=== PATIENT | male | born 1995 | race Two or more races ===

== ENCOUNTER 2018-05-25 11:46 | Inpatient (IN) | payer MEDICAID ==
[~2018-05-25] VITALS: Ht 165.1 cm; Wt 53.3 kg
[~2018-05-25 11:46] MED LIST: DIVA250T45 PO; OLAN10TA3 PO
[2018-05-25 14:04] VITALS: BP 115/65
[2018-05-25] MEDS ORDERED: HALOPERIDOL 5 MG TABLET PO PRN (14:15)
[2018-05-25 15:55] VITALS: BP 106/78
[2018-05-25] MEDS ORDERED: ACETAMINOPHEN 325 MG TABLET PO PRN (16:00)
[2018-05-25] MEDS ORDERED: PETROLATUM,WHITE 28 GM JELLY TP PRN (16:00)
[2018-05-25] MEDS ORDERED: LOPERAMIDE HCL 2 MG CAPSULE PO PRN (16:00)
[2018-05-25] MEDS ORDERED: ONDANSETRON HCL 4 MG TABLET PO PRN (16:00)
[2018-05-25] MEDS ORDERED: GuaiFENesin/D-METHORPHAN [SUGAR-FREE] 200-20MG/10 ML SYRUP UDCUP PO PRN (16:00)
[2018-05-25] MEDS ORDERED: IBUPROFEN 400 MG TABLET PO PRN (16:00)
[2018-05-25] MEDS ORDERED: DOCUSATE SODIUM 100 MG CAPSULE PO PRN (16:00)
[2018-05-25] MEDS ORDERED: MAGNESIUM HYDROXIDE SUSPENSION 30 ML UDCUP PO PRN (16:00)
[2018-05-25] MEDS ORDERED: MAG HYDROX/AL HYDROX/SIMETH ES 30 ML SUSPENSION UDCUP PO PRN (16:00)
[2018-05-25] MEDS ORDERED: CloNIDine HCL 0.1 MG TABLET PO PRN (16:00)
[2018-05-25] MEDS ORDERED: ALBUTEROL SULFATE HFA 90 MCG/PUFF 8 GM INHALER IH PRN (16:00)
[2018-05-25] MEDS ORDERED: NICOTINE 14 MG/24 HOUR PATCH TD PRN (16:00)
[2018-05-26 06:06] VITALS: BP 112/68
[2018-05-26 08:10] VITALS: BP 104/68
[2018-05-26 10:02] LABS: BASOPHILS % (AUTO) 0.6 % (0.0-2.0); EOSINOPHILS % (AUTO) 1.2 % (1.0-6.0); HEMOGLOBIN 14.4 g/dL (13.5-17.5); LYMPHOCYTES # (AUTO) 1.9 K/uL (1.0-4.8); LYMPHOCYTES % (AUTO) 32.1 % (22.0-44.0); MEAN CORPUSCULAR HEMOGLOBIN 31.3 pg (26.0-34.0); MEAN CORPUSCULAR HGB CONC 34.2 G/dL (31.0-37.0); MEAN CORPUSCULAR VOLUME 92 fL (80-100); MONOCYTES # (AUTO) 0.5 K/uL (0.1-1.0); MONOCYTES % (AUTO) 8.8 % (2.0-9.0); NEUTROPHILS # (AUTO) 3.5 K/uL (1.8-7.7); NEUTROPHILS % (AUTO) 57.3 % (40.0-70.0); PLATELET COUNT (AUTO) 189 K/uL (150-450); RED BLOOD CELL COUNT(AUTO) 4.59 MIL/uL (4.50-5.90); RED CELL DISTRIBUTION WIDTH 13.3 % (11.5-14.5)
[2018-05-26 10:46] LABS: HEMOGLOBIN A1C 5.7 % (4.5-6.2)
[2018-05-26 11:17] LABS: ALANINE AMINOTRANSFERASE 14 U/L (12-78); ALBUMIN 4.2 g/dL (3.4-5.0); ANION GAP 11 mmol/L (8-16); ASPARTATE AMINOTRANSFERASE 11 U/L (15-37); BILIRUBIN,TOTAL 0.8 mg/dL (0.1-1.0); CALCIUM, TOTAL 9.2 mg/dL (8.8-10.5); CARBON DIOXIDE 26 mmol/L (22-29); CHLORIDE 103 mmol/L (98-107); CHOL/HDL RATIO 3.7 (4.2-7.3); CHOLESTEROL 134 mg/dL (131-200); CREATININE 0.94 mg/dL (0.60-1.30); FREE T4 (FREE THYROXINE) 1.13 ng/dL (0.76-1.46); GLOMERULAR FILTR. RATE CALC > 60 mL/min (>60); GLUCOSE,RANDOM 108 mg/dL (70-110); HDL CHOLESTEROL 36 mg/dL (40-60); LDL CHOL (CALC.) 85 mg/dL (0-130); POTASSIUM 3.4 mmol/L (3.5-5.1); SODIUM SERUM 140 mmol/L (136-145); THYROID STIMULATING HORMONE 0.71 uIU/mL (0.36-3.74); TRIGLYCERIDES 63 mg/dL (15-150); UREA NITROGEN, BLOOD 14 mg/dL (7-18)
[2018-05-26 11:29] LABS: ALKALINE PHOSPHATASE 68 U/L (46-116)
[2018-05-26] MEDS: DIVALPROEX SODIUM 250 MG ER TABLET PO SCH ×2 (12:15→20:23)
[2018-05-26] MEDS ORDERED: POTASSIUM CHLORIDE 20 MEQ ER TABLET PO ONE (12:45)
[2018-05-26 16:11] VITALS: BP 124/85
[2018-05-26] MEDS: OLANZapine 10 MG TABLET PO SCH (16:13)
[2018-05-27 05:57] VITALS: BP 126/79
[2018-05-27] MEDS: OLANZapine 10 MG TABLET PO SCH ×2 (08:16→16:15)
[2018-05-27] MEDS: DIVALPROEX SODIUM 250 MG ER TABLET PO SCH ×2 (08:16→20:55)
[2018-05-27 08:55] VITALS: BP 131/80
[2018-05-27] MEDS: LORazepam 2 MG TABLET PO PRN (16:15)
[2018-05-27 16:19] VITALS: BP 118/76
[2018-05-27] MEDS: ZOLPIDEM TARTRATE 10 MG TABLET PO PRN (20:55)
[2018-05-28 06:37] VITALS: BP 118/64
[2018-05-28] MEDS: OLANZapine 10 MG TABLET PO SCH ×2 (08:05→16:54)
[2018-05-28] MEDS: DIVALPROEX SODIUM 250 MG ER TABLET PO SCH ×2 (08:05→20:41)
[2018-05-28 08:12] VITALS: BP 111/70
[2018-05-28] MEDS: LORazepam 2 MG TABLET PO PRN (16:54)
[2018-05-28 18:33] VITALS: BP 117/75
[2018-05-29 01:55] VITALS: BP 114/73
[2018-05-29 08:04] VITALS: BP 106/66
[2018-05-29] MEDS: DIVALPROEX SODIUM 250 MG ER TABLET PO SCH ×2 (08:35→20:18)
[2018-05-29] MEDS: OLANZapine 10 MG TABLET PO SCH ×2 (08:35→17:09)
[2018-05-29 16:00] VITALS: BP 130/67
[2018-05-29] MEDS: LORazepam 2 MG TABLET PO PRN (17:09)
[2018-05-29] MEDS: ZOLPIDEM TARTRATE 10 MG TABLET PO PRN (20:18)
[2018-05-30 01:48] VITALS: BP 122/68
[2018-05-30] MEDS: OLANZapine 10 MG TABLET PO SCH ×2 (08:27→16:41)
[2018-05-30] MEDS: DIVALPROEX SODIUM 250 MG ER TABLET PO SCH ×2 (08:27→20:23)
[2018-05-30 08:45] VITALS: BP 98/56
[2018-05-30 16:02] VITALS: BP 127/71
[2018-05-30] MEDS: LORazepam 2 MG TABLET PO PRN (16:42)
[2018-05-30] MEDS: ZOLPIDEM TARTRATE 10 MG TABLET PO PRN (20:23)
[2018-05-31 06:40] VITALS: BP 118/82
[2018-05-31] MEDS: LORazepam 2 MG TABLET PO PRN (08:08)
[2018-05-31] MEDS: DIVALPROEX SODIUM 250 MG ER TABLET PO SCH (08:08)
[2018-05-31] MEDS: OLANZapine 10 MG TABLET PO SCH (08:08)
[2018-05-31 08:11] VITALS: BP 102/53
[2018-05-31] MEDS ORDERED: OLAN10TA3 PO (15:44)
[2018-05-31] MEDS ORDERED: DIVA500T52 PO (15:45)
== END 2018-05-31 16:32 | disposition left against medical advice (07) | DRG 750 ==
LOC: B3A 14:21
PROVIDERS: ADMIT Psychiatry & Neurology Child & Adolescent Psychiatry; ATTEND Psychiatry & Neurology Child & Adolescent Psychiatry
DX: F20.0 Paranoid schizophrenia (principal); E87.6 Hypokalemia; F94.0 Selective mutism; J45.909 Unspecified asthma, uncomplicated; F99 Mental disorder, not otherwise specified; F19.10 Other psychoactive substance abuse, uncomplicated; F41.9 Anxiety disorder, unspecified
CPT/HCPCS: 83036; 84132; 84439; 84443

== ENCOUNTER 2018-06-06 16:21 | Inpatient (IN) | payer MEDICAID, OTHER ==
[~2018-06-06] VITALS: Ht 162.6 cm; Wt 54.4 kg
[~2018-06-06 16:21] MED LIST changes: -DIVA250T45 PO; +DIVA500T52 PO
[2018-06-06 19:42] LABS: BASOPHILS % (AUTO) 0.3 % (0.0-2.0); EOSINOPHILS % (AUTO) 0.4 % (1.0-6.0); HEMATOCRIT 41.6 % (41-53); HEMOGLOBIN 14.6 g/dL (13.5-17.5); LYMPHOCYTES # (AUTO) 2.2 K/uL (1.0-4.8); LYMPHOCYTES % (AUTO) 23.4 % (22.0-44.0); MEAN CORPUSCULAR HEMOGLOBIN 31.2 pg (26.0-34.0); MEAN CORPUSCULAR HGB CONC 35.1 G/dL (31.0-37.0); MEAN CORPUSCULAR VOLUME 89 fL (80-100); MONOCYTES # (AUTO) 1.4 K/uL (0.1-1.0); MONOCYTES % (AUTO) 14.4 % (2.0-9.0); NEUTROPHILS # (AUTO) 5.8 K/uL (1.8-7.7); NEUTROPHILS % (AUTO) 61.5 % (40.0-70.0); PLATELET COUNT (AUTO) 201 K/uL (150-450); RED BLOOD CELL COUNT(AUTO) 4.67 MIL/uL (4.50-5.90)
[2018-06-06] MEDS ORDERED: PERTUSS(ACELL),DIPH,TET VAC/PF 0.5 ML VIAL IM ONE (19:45)
[2018-06-06 19:48] LABS: ANION GAP 14 mmol/L (8-16); CALCIUM, TOTAL 9.6 mg/dL (8.8-10.5); CARBON DIOXIDE 24 mmol/L (22-29); CHLORIDE 105 mmol/L (98-107); CREATININE 1.05 mg/dL (0.60-1.30); GLOMERULAR FILTR. RATE CALC > 60 mL/min (>60); GLUCOSE,RANDOM 98 mg/dL (70-110); POTASSIUM 3.2 mmol/L (3.5-5.1); SODIUM SERUM 143 mmol/L (136-145); UREA NITROGEN, BLOOD 15 mg/dL (7-18)
[2018-06-06 19:55] LABS: ALANINE AMINOTRANSFERASE 13 U/L (12-78); ALBUMIN 4.5 g/dL (3.4-5.0); ALKALINE PHOSPHATASE 72 U/L (46-116); ASPARTATE AMINOTRANSFERASE 15 U/L (15-37); BILIRUBIN,TOTAL 0.7 mg/dL (0.1-1.0); TOTAL PROTEIN, SERUM 7.5 g/dL (6.4-8.2)
[2018-06-06 19:55] LABS: AMPHET/METH SCREEN,URINE NEGATIVE (NEGATIVE); BARBITURATE SCREEN, URINE NEGATIVE (NEGATIVE); BENZODIAZEPINES SCREEN,URINE NEGATIVE (NEGATIVE); CANNABINOID SCREEN,URINE NEGATIVE (NEGATIVE); COCAINE SCREEN,URINE NEGATIVE (NEGATIVE); METHADONE SCREEN, URINE NEGATIVE (NEGATIVE); OPIATE SCREEN,URINE NEGATIVE (NEGATIVE)
[2018-06-06 19:56] LABS: PHENCYCLIDINE SCREEN,URINE NEGATIVE (NEGATIVE)
[2018-06-06 20:08] LABS: VALPROIC ACID < 3 mcg/mL (50-100)
[2018-06-06] MEDS ORDERED: POTASSIUM CHLORIDE 20 MEQ ER TABLET PO ONE (20:45)
[2018-06-06] MEDS ORDERED: OLANZapine 5 MG TABLET PO ONE (21:30)
[2018-06-06] MEDS ORDERED: HALOPERIDOL 5 MG TABLET PO PRN (22:15)
[2018-06-06] MEDS ORDERED: LORazepam 2 MG TABLET PO PRN (22:15)
[2018-06-06] MEDS ORDERED: ZOLPIDEM TARTRATE 10 MG TABLET PO PRN (22:15)
[2018-06-07 00:25] VITALS: BP 114/69
[2018-06-07] MEDS ORDERED: PETROLATUM,WHITE 28 GM JELLY TP PRN (06:45)
[2018-06-07] MEDS ORDERED: NICOTINE 14 MG/24 HOUR PATCH TD PRN (06:45)
[2018-06-07] MEDS ORDERED: IBUPROFEN 400 MG TABLET PO PRN (06:45)
[2018-06-07] MEDS ORDERED: ALBUTEROL SULFATE HFA 90 MCG/PUFF 8 GM INHALER IH PRN (06:45)
[2018-06-07] MEDS ORDERED: CloNIDine HCL 0.1 MG TABLET PO PRN (06:45)
[2018-06-07] MEDS ORDERED: DOCUSATE SODIUM 100 MG CAPSULE PO PRN (06:45)
[2018-06-07] MEDS ORDERED: ACETAMINOPHEN 325 MG TABLET PO PRN (06:45)
[2018-06-07] MEDS ORDERED: ONDANSETRON HCL 4 MG TABLET PO PRN (06:45)
[2018-06-07] MEDS ORDERED: LOPERAMIDE HCL 2 MG CAPSULE PO PRN (06:45)
[2018-06-07] MEDS ORDERED: MAG HYDROX/AL HYDROX/SIMETH ES 30 ML SUSPENSION UDCUP PO PRN (06:45)
[2018-06-07] MEDS ORDERED: GuaiFENesin/D-METHORPHAN [SUGAR-FREE] 200-20MG/10 ML SYRUP UDCUP PO PRN (06:45)
[2018-06-07] MEDS ORDERED: MAGNESIUM HYDROXIDE SUSPENSION 30 ML UDCUP PO PRN (06:45)
[2018-06-07 08:02] VITALS: BP 98/58
[2018-06-07] MEDS: DIVALPROEX SODIUM 500 MG ER TABLET PO SCH ×2 (13:25→20:46)
[2018-06-07] MEDS: OLANZapine 10 MG TABLET PO SCH (17:59)
[2018-06-08 07:12] LABS: ALANINE AMINOTRANSFERASE 12 U/L (12-78); ALBUMIN 3.9 g/dL (3.4-5.0); ALKALINE PHOSPHATASE 70 U/L (46-116); ANION GAP 12 mmol/L (8-16); ASPARTATE AMINOTRANSFERASE 15 U/L (15-37); BILIRUBIN,TOTAL 0.6 mg/dL (0.1-1.0); CALCIUM, TOTAL 9.1 mg/dL (8.8-10.5); CARBON DIOXIDE 26 mmol/L (22-29); CHLORIDE 107 mmol/L (98-107); CHOL/HDL RATIO 3.9 (4.2-7.3); CHOLESTEROL 150 mg/dL (131-200); CREATININE 0.82 mg/dL (0.60-1.30); GLOMERULAR FILTR. RATE CALC > 60 mL/min (>60); GLUCOSE,RANDOM 82 mg/dL (70-110); HDL CHOLESTEROL 38 mg/dL (40-60); LDL CHOL (CALC.) 101 mg/dL (0-130); POTASSIUM 3.8 mmol/L (3.5-5.1); SODIUM SERUM 145 mmol/L (136-145); THYROID STIMULATING HORMONE 0.61 uIU/mL (0.36-3.74); TOTAL PROTEIN, SERUM 6.6 g/dL (6.4-8.2); TRIGLYCERIDES 55 mg/dL (15-150); UREA NITROGEN, BLOOD 12 mg/dL (7-18)
[2018-06-08 07:30] LABS: HEMOGLOBIN A1C 5.7 % (4.5-6.2)
[2018-06-08 08:20] VITALS: BP 97/56
[2018-06-08] MEDS: DIVALPROEX SODIUM 500 MG ER TABLET PO SCH ×2 (08:35→21:18)
[2018-06-08] MEDS: OLANZapine 10 MG TABLET PO SCH ×2 (08:35→17:42)
[2018-06-08 16:08] VITALS: BP 115/66
[2018-06-08] MEDS: BACITRACIN 28.4 GM OINTMENT TP SCH (17:43)
[2018-06-09 08:12] VITALS: BP 116/71
[2018-06-09] MEDS: BACITRACIN 28.4 GM OINTMENT TP SCH ×2 (09:36→16:41)
[2018-06-09] MEDS: OLANZapine 10 MG TABLET PO SCH ×2 (09:36→16:41)
[2018-06-09] MEDS: DIVALPROEX SODIUM 500 MG ER TABLET PO SCH ×2 (09:36→20:18)
[2018-06-09 16:30] VITALS: BP 120/72
[2018-06-10 08:00] VITALS: BP 131/73
[2018-06-10] MEDS: BACITRACIN 28.4 GM OINTMENT TP SCH ×2 (08:46→17:24)
[2018-06-10] MEDS: OLANZapine 10 MG TABLET PO SCH ×2 (08:46→17:24)
[2018-06-10] MEDS: DIVALPROEX SODIUM 500 MG ER TABLET PO SCH ×2 (08:46→20:01)
[2018-06-10 18:49] VITALS: BP 119/63
[2018-06-11] MEDS: BACITRACIN 28.4 GM OINTMENT TP SCH ×2 (07:38→16:04)
[2018-06-11] MEDS: DIVALPROEX SODIUM 500 MG ER TABLET PO SCH ×2 (07:38→20:41)
[2018-06-11] MEDS: OLANZapine 10 MG TABLET PO SCH ×2 (07:38→16:04)
[2018-06-11 08:00] VITALS: BP 114/72
[2018-06-11 17:04] VITALS: BP 107/73
[2018-06-12 08:00] VITALS: BP 126/77
[2018-06-12] MEDS: OLANZapine 10 MG TABLET PO SCH (08:01)
[2018-06-12] MEDS: BACITRACIN 28.4 GM OINTMENT TP SCH (08:01)
[2018-06-12] MEDS: DIVALPROEX SODIUM 500 MG ER TABLET PO SCH (08:01)
[2018-06-12] MEDS ORDERED: BACI120O TP (12:47)
== END 2018-06-12 14:27 | disposition home or self-care (01) | DRG 750 ==
LOC: EMS 16:31 → 3EC 23:52
PROVIDERS: ATTEND Psychiatry & Neurology Child & Adolescent Psychiatry
DX: F20.9 Schizophrenia, unspecified (principal); Z59.0 Homelessness; E87.6 Hypokalemia; F17.200 Nicotine dependence, unspecified, uncomplicated; F32.9 Major depressive disorder, single episode, unspecified; F41.9 Anxiety disorder, unspecified; F12.90 Cannabis use, unspecified, uncomplicated; J45.909 Unspecified asthma, uncomplicated; Z71.6 Tobacco abuse counseling
CPT/HCPCS: 83036; 84443; 87081; 90471; 90715; G0480

== ENCOUNTER 2018-10-07 18:47 | Inpatient (IN) | payer MEDICAID, OTHER ==
[~2018-10-07] VITALS: Ht 162.6 cm; Wt 49.4 kg
[~2018-10-07 18:47] MED LIST changes: +BACI120O TP
[2018-10-07 20:57] LABS: BASOPHILS % (AUTO) 0.7 % (0.0-2.0); EOSINOPHILS % (AUTO) 2.1 % (1.0-6.0); HEMATOCRIT 41.9 % (41-53); LYMPHOCYTES # (AUTO) 2.3 K/uL (1.0-4.8); LYMPHOCYTES % (AUTO) 44.3 % (22.0-44.0); MEAN CORPUSCULAR HEMOGLOBIN 31.1 pg (26.0-34.0); MEAN CORPUSCULAR HGB CONC 33.5 G/dL (31.0-37.0); MEAN CORPUSCULAR VOLUME 93 fL (80-100); MONOCYTES # (AUTO) 0.5 K/uL (0.1-1.0); MONOCYTES % (AUTO) 9.7 % (2.0-9.0); NEUTROPHILS # (AUTO) 2.2 K/uL (1.8-7.7); NEUTROPHILS % (AUTO) 43.2 % (40.0-70.0); PLATELET COUNT (AUTO) 179 K/uL (150-450); RED BLOOD CELL COUNT(AUTO) 4.52 MIL/uL (4.50-5.90)
[2018-10-07 21:09] LABS: ANION GAP 6 mmol/L (8-16); CALCIUM, TOTAL 9.2 mg/dL (8.8-10.5); CARBON DIOXIDE 29 mmol/L (22-29); CHLORIDE 103 mmol/L (98-107); CREATININE 0.79 mg/dL (0.60-1.30); GLOMERULAR FILTR. RATE CALC > 60 mL/min (>60); GLUCOSE,RANDOM 88 mg/dL (70-110); POTASSIUM 3.9 mmol/L (3.5-5.1); SODIUM SERUM 138 mmol/L (136-145); UREA NITROGEN, BLOOD 13 mg/dL (7-18)
[2018-10-07 21:15] LABS: ALANINE AMINOTRANSFERASE 9 U/L (12-78); ALBUMIN 4.5 g/dL (3.4-5.0); ALKALINE PHOSPHATASE 70 U/L (46-116); ASPARTATE AMINOTRANSFERASE 9 U/L (15-37); BILIRUBIN,TOTAL 0.5 mg/dL (0.1-1.0); TOTAL PROTEIN, SERUM 7.2 g/dL (6.4-8.2)
[2018-10-07 21:16] LABS: VALPROIC ACID < 3 mcg/mL (50-100)
[2018-10-07] MEDS ORDERED: HALOPERIDOL 5 MG TABLET PO ONE (22:15)
[2018-10-07] MEDS ORDERED: DiphenhydrAMINE HCL 25 MG CAPSULE PO ONE (22:15)
[2018-10-08] MEDS ORDERED: HALOPERIDOL 5 MG TABLET PO PRN (02:45)
[2018-10-08] MEDS ORDERED: ZOLPIDEM TARTRATE 10 MG TABLET PO PRN (02:45)
[2018-10-08] MEDS ORDERED: LORazepam 2 MG TABLET PO PRN (02:45)
[2018-10-08 04:21] VITALS: BP 115/71
[2018-10-08] MEDS ORDERED: DOCUSATE SODIUM 100 MG CAPSULE PO PRN (07:15)
[2018-10-08] MEDS ORDERED: MAG HYDROX/AL HYDROX/SIMETH ES 30 ML SUSPENSION UDCUP PO PRN (07:15)
[2018-10-08] MEDS ORDERED: LOPERAMIDE HCL 2 MG CAPSULE PO PRN (07:15)
[2018-10-08] MEDS ORDERED: MAGNESIUM HYDROXIDE SUSPENSION 30 ML UDCUP PO PRN (07:15)
[2018-10-08] MEDS ORDERED: ONDANSETRON HCL 4 MG TABLET PO PRN (07:15)
[2018-10-08] MEDS ORDERED: PETROLATUM,WHITE 28 GM JELLY TP PRN (07:15)
[2018-10-08] MEDS ORDERED: GuaiFENesin/D-METHORPHAN [SUGAR-FREE] 200-20MG/10 ML SYRUP UDCUP PO PRN (07:15)
[2018-10-08] MEDS ORDERED: IBUPROFEN 400 MG TABLET PO PRN (07:15)
[2018-10-08] MEDS ORDERED: ACETAMINOPHEN 325 MG TABLET PO PRN (07:15)
[2018-10-08] MEDS ORDERED: ALBUTEROL SULFATE HFA 90 MCG/PUFF 8 GM INHALER IH PRN (07:15)
[2018-10-08] MEDS ORDERED: CloNIDine HCL 0.1 MG TABLET PO PRN (07:15)
[2018-10-08] MEDS ORDERED: NICOTINE 14 MG/24 HOUR PATCH TD PRN (07:15)
[2018-10-08 09:33] VITALS: BP 96/76
[2018-10-08] MEDS: DIVALPROEX SODIUM 500 MG ER TABLET PO SCH ×2 (14:54→20:36)
[2018-10-08] MEDS: OLANZapine 10 MG TABLET PO SCH (16:08)
[2018-10-08 22:44] VITALS: BP 128/63
[2018-10-09 06:23] LABS: BASOPHILS % (AUTO) 0.7 % (0.0-2.0); EOSINOPHILS % (AUTO) 3.2 % (1.0-6.0); HEMATOCRIT 44.4 % (41-53); HEMOGLOBIN 14.9 g/dL (13.5-17.5); LYMPHOCYTES # (AUTO) 1.6 K/uL (1.0-4.8); LYMPHOCYTES % (AUTO) 39.1 % (22.0-44.0); MEAN CORPUSCULAR HEMOGLOBIN 30.9 pg (26.0-34.0); MEAN CORPUSCULAR HGB CONC 33.5 G/dL (31.0-37.0); MEAN CORPUSCULAR VOLUME 92 fL (80-100); MONOCYTES # (AUTO) 0.5 K/uL (0.1-1.0); MONOCYTES % (AUTO) 12.2 % (2.0-9.0); NEUTROPHILS # (AUTO) 1.8 K/uL (1.8-7.7); NEUTROPHILS % (AUTO) 44.8 % (40.0-70.0); PLATELET COUNT (AUTO) 184 K/uL (150-450); RED BLOOD CELL COUNT(AUTO) 4.81 MIL/uL (4.50-5.90); RED CELL DISTRIBUTION WIDTH 12.9 % (11.5-14.5)
[2018-10-09 06:30] LABS: HEMOGLOBIN A1C 5.3 % (4.5-6.2)
[2018-10-09 06:49] LABS: ALANINE AMINOTRANSFERASE 9 U/L (12-78); ALKALINE PHOSPHATASE 68 U/L (46-116); ANION GAP 3 mmol/L (8-16); ASPARTATE AMINOTRANSFERASE 11 U/L (15-37); BILIRUBIN,TOTAL 0.4 mg/dL (0.1-1.0); CALCIUM, TOTAL 9.1 mg/dL (8.8-10.5); CARBON DIOXIDE 31 mmol/L (22-29); CHLORIDE 105 mmol/L (98-107); CHOL/HDL RATIO 3.8 (4.2-7.3); CHOLESTEROL 139 mg/dL (131-200); CREATININE 0.92 mg/dL (0.60-1.30); GLOMERULAR FILTR. RATE CALC > 60 mL/min (>60); GLUCOSE,RANDOM 87 mg/dL (70-110); HDL CHOLESTEROL 37 mg/dL (40-60); LDL CHOL (CALC.) 89 mg/dL (0-130); POTASSIUM 4.4 mmol/L (3.5-5.1); SODIUM SERUM 139 mmol/L (136-145); THYROID STIMULATING HORMONE 1.03 uIU/mL (0.36-3.74); TOTAL PROTEIN, SERUM 6.7 g/dL (6.4-8.2); TRIGLYCERIDES 65 mg/dL (15-150); UREA NITROGEN, BLOOD 11 mg/dL (7-18)
[2018-10-09] MEDS: DIVALPROEX SODIUM 500 MG ER TABLET PO SCH ×2 (09:50→21:07)
[2018-10-09] MEDS: OLANZapine 10 MG TABLET PO SCH ×2 (09:50→16:57)
[2018-10-09 11:27] VITALS: BP 128/61
[2018-10-09 16:45] VITALS: BP 130/77
[2018-10-10] MEDS: DIVALPROEX SODIUM 500 MG ER TABLET PO SCH ×2 (08:18→20:41)
[2018-10-10] MEDS: OLANZapine 10 MG TABLET PO SCH ×2 (08:18→17:08)
[2018-10-10 09:30] VITALS: BP 124/80
[2018-10-10 16:30] VITALS: BP 132/76
[2018-10-11 08:43] VITALS: BP 124/68
[2018-10-11] MEDS: DIVALPROEX SODIUM 500 MG ER TABLET PO SCH (09:15)
[2018-10-11] MEDS: OLANZapine 10 MG TABLET PO SCH ×2 (09:15→16:39)
== END 2018-10-11 17:30 | disposition home or self-care (01) | DRG 750 ==
LOC: EMS 18:50 → 3EI 10-08 03:30
PROVIDERS: ADMIT Psychiatry & Neurology Child & Adolescent Psychiatry; ATTEND Psychiatry & Neurology Child & Adolescent Psychiatry
DX: F20.9 Schizophrenia, unspecified (principal); I95.9 Hypotension, unspecified; Z59.0 Homelessness; Z91.19 Patient's noncompliance with other medical treatment and regimen; F12.90 Cannabis use, unspecified, uncomplicated; J45.909 Unspecified asthma, uncomplicated; Z87.891 Personal history of nicotine dependence; Z79.899 Other long term (current) drug therapy
CPT/HCPCS: 83036; 84443; G0480

== ENCOUNTER 2018-10-23 04:48 | Emergency (ER) | payer MEDICAID, OTHER ==
[~2018-10-23] VITALS: Ht 162.6 cm; Wt 61.0 kg
[~2018-10-23 04:48] MED LIST changes: -BACI120O TP
[2018-10-23 05:33] LABS: BASOPHILS % (AUTO) 0.6 % (0.0-2.0); EOSINOPHILS % (AUTO) 1.8 % (1.0-6.0); HEMATOCRIT 41.4 % (41-53); HEMOGLOBIN 13.8 g/dL (13.5-17.5); LYMPHOCYTES # (AUTO) 1.9 K/uL (1.0-4.8); LYMPHOCYTES % (AUTO) 35.9 % (22.0-44.0); MEAN CORPUSCULAR HGB CONC 33.3 G/dL (31.0-37.0); MEAN CORPUSCULAR VOLUME 93 fL (80-100); MONOCYTES # (AUTO) 0.5 K/uL (0.1-1.0); MONOCYTES % (AUTO) 10.2 % (2.0-9.0); NEUTROPHILS # (AUTO) 2.7 K/uL (1.8-7.7); NEUTROPHILS % (AUTO) 51.5 % (40.0-70.0); PLATELET COUNT (AUTO) 175 K/uL (150-450); RED BLOOD CELL COUNT(AUTO) 4.45 MIL/uL (4.50-5.90)
[2018-10-23 05:43] LABS: ANION GAP 7 mmol/L (8-16); CALCIUM, TOTAL 9.1 mg/dL (8.8-10.5); CARBON DIOXIDE 27 mmol/L (22-29); CHLORIDE 105 mmol/L (98-107); CREATININE 0.93 mg/dL (0.60-1.30); GLOMERULAR FILTR. RATE CALC > 60 mL/min (>60); GLUCOSE,RANDOM 145 mg/dL (70-110); POTASSIUM 4.4 mmol/L (3.5-5.1); SODIUM SERUM 139 mmol/L (136-145); UREA NITROGEN, BLOOD 12 mg/dL (7-18)
[2018-10-23 05:49] LABS: ALANINE AMINOTRANSFERASE 13 U/L (12-78); ALBUMIN 4.3 g/dL (3.4-5.0); ALKALINE PHOSPHATASE 63 U/L (46-116); ASPARTATE AMINOTRANSFERASE 11 U/L (15-37); BILIRUBIN,TOTAL 0.4 mg/dL (0.1-1.0)
[2018-10-23 06:01] LABS: VALPROIC ACID < 3 mcg/mL (50-100)
[2018-10-23] MEDS ORDERED: OLANZapine 5 MG TABLET PO ONE (08:15)
[2018-10-23] MEDS ORDERED: DIVALPROEX SODIUM 500 MG ER TABLET PO ONE (08:15)
[2018-10-23 09:28] VITALS: BP 106/68
== END 2018-10-23 10:59 | disposition home or self-care (01) ==
LOC: EMS 04:48
DX: F20.9 Schizophrenia, unspecified (principal); J45.909 Unspecified asthma, uncomplicated; F32.9 Major depressive disorder, single episode, unspecified; F17.210 Nicotine dependence, cigarettes, uncomplicated; F12.90 Cannabis use, unspecified, uncomplicated; Z79.899 Other long term (current) drug therapy
CPT/HCPCS: 36415; 80053; 80164; 85025; 99284; G0480

== ENCOUNTER 2019-03-07 10:20 | Inpatient (IN) | payer MEDICAID, OTHER ==
[~2019-03-07] VITALS: Ht 162.6 cm; Wt 53.1 kg
[2019-03-07 11:46] LABS: BASOPHILS % (AUTO) 0.5 % (0.0-2.0); EOSINOPHILS % (AUTO) 2.2 % (1.0-6.0); HEMATOCRIT 39.8 % (41-53); HEMOGLOBIN 13.9 g/dL (13.5-17.5); LYMPHOCYTES # (AUTO) 1.5 K/uL (1.0-4.8); LYMPHOCYTES % (AUTO) 25.1 % (22.0-44.0); MEAN CORPUSCULAR HEMOGLOBIN 31.6 pg (26.0-34.0); MEAN CORPUSCULAR HGB CONC 34.9 G/dL (31.0-37.0); MEAN CORPUSCULAR VOLUME 91 fL (80-100); MONOCYTES # (AUTO) 0.5 K/uL (0.1-1.0); MONOCYTES % (AUTO) 8.9 % (2.0-9.0); NEUTROPHILS # (AUTO) 3.7 K/uL (1.8-7.7); NEUTROPHILS % (AUTO) 63.3 % (40.0-70.0); PLATELET COUNT (AUTO) 228 K/uL (150-450); RED CELL DISTRIBUTION WIDTH 12.8 % (11.5-14.5)
[2019-03-07 11:59] LABS: ANION GAP 4 mmol/L (8-16); CALCIUM, TOTAL 8.8 mg/dL (8.8-10.5); CARBON DIOXIDE 31 mmol/L (22-29); CHLORIDE 107 mmol/L (98-107); CREATININE 0.93 mg/dL (0.60-1.30); GLOMERULAR FILTR. RATE CALC > 60 mL/min (>60); GLUCOSE,RANDOM 94 mg/dL (70-110); POTASSIUM 4.3 mmol/L (3.5-5.1); SODIUM SERUM 142 mmol/L (136-145); UREA NITROGEN, BLOOD 10 mg/dL (7-18)
[2019-03-07] MEDS ORDERED: HALOPERIDOL 5 MG TABLET PO PRN (12:00)
[2019-03-07] MEDS ORDERED: ZOLPIDEM TARTRATE 10 MG TABLET PO PRN (12:00)
[2019-03-07 12:03] LABS: ALANINE AMINOTRANSFERASE 19 U/L (12-78); ALBUMIN 3.8 g/dL (3.4-5.0); ALKALINE PHOSPHATASE 77 U/L (46-116); ASPARTATE AMINOTRANSFERASE 32 U/L (15-37); BILIRUBIN,TOTAL 0.5 mg/dL (0.1-1.0); TOTAL PROTEIN, SERUM 6.7 g/dL (6.4-8.2)
[2019-03-07 12:33] LABS: VALPROIC ACID < 3 mcg/mL (50-100)
[2019-03-07 16:07] VITALS: BP 114/73
[2019-03-07] MEDS: OLANZapine 10 MG TABLET PO SCH (16:21)
[2019-03-07] MEDS: DIVALPROEX SODIUM 500 MG ER TABLET PO SCH (16:21)
[2019-03-07] MEDS: LORazepam 2 MG TABLET PO PRN (16:22)
[2019-03-08 08:37] VITALS: BP 100/55
[2019-03-08] MEDS: OLANZapine 10 MG TABLET PO SCH ×2 (08:38→16:50)
[2019-03-08] MEDS: DIVALPROEX SODIUM 500 MG ER TABLET PO SCH ×2 (08:38→16:50)
[2019-03-08 17:03] VITALS: BP 104/78
[2019-03-09 07:09] VITALS: BP 110/62
[2019-03-09] MEDS: DIVALPROEX SODIUM 500 MG ER TABLET PO SCH ×2 (08:01→17:53)
[2019-03-09] MEDS: LORazepam 2 MG TABLET PO PRN ×2 (08:02→12:04)
[2019-03-09] MEDS: OLANZapine 10 MG TABLET PO SCH ×2 (08:02→17:53)
[2019-03-09 08:43] VITALS: BP 114/70
[2019-03-09 08:51] LABS: CHOL/HDL RATIO 3.5 (4.2-7.3); FREE T4 (FREE THYROXINE) 1.11 ng/dL (0.76-1.46); THYROID STIMULATING HORMONE 0.59 uIU/mL (0.36-3.74)
[2019-03-09 16:00] VITALS: BP 124/73
[2019-03-10 06:49] VITALS: BP 121/65
[2019-03-10 08:24] VITALS: BP 114/71
[2019-03-10] MEDS: DIVALPROEX SODIUM 500 MG ER TABLET PO SCH ×2 (08:42→16:08)
[2019-03-10] MEDS: OLANZapine 10 MG TABLET PO SCH ×2 (08:42→16:08)
[2019-03-10 16:04] VITALS: BP 102/56
[2019-03-11 06:19] VITALS: BP 106/82
[2019-03-11 08:11] VITALS: BP 132/75
[2019-03-11] MEDS: LORazepam 2 MG TABLET PO PRN ×2 (08:28→16:18)
[2019-03-11] MEDS: DIVALPROEX SODIUM 500 MG ER TABLET PO SCH ×2 (08:28→16:18)
[2019-03-11] MEDS: OLANZapine 10 MG TABLET PO SCH ×2 (08:28→16:18)
[2019-03-11 16:42] VITALS: BP 117/64
[2019-03-12 06:07] VITALS: BP 101/58
[2019-03-12 08:16] VITALS: BP 113/62
[2019-03-12] MEDS: DIVALPROEX SODIUM 500 MG ER TABLET PO SCH (08:43)
[2019-03-12] MEDS: OLANZapine 10 MG TABLET PO SCH ×2 (08:43→17:37)
[2019-03-12 16:08] VITALS: BP 130/68
[2019-03-12] MEDS: DIVALPROEX SODIUM 250 MG ER TABLET PO SCH (17:37)
[2019-03-13 05:28] VITALS: BP 103/58
[2019-03-13 08:14] VITALS: BP 137/68
[2019-03-13] MEDS: DIVALPROEX SODIUM 250 MG ER TABLET PO SCH ×2 (08:35→16:52)
[2019-03-13] MEDS: OLANZapine 10 MG TABLET PO SCH ×2 (08:37→16:52)
[2019-03-13] MEDS: LORazepam 2 MG TABLET PO PRN (16:52)
[2019-03-13 16:58] VITALS: BP 106/62
[2019-03-14 01:53] VITALS: BP 118/70
[2019-03-14 08:12] VITALS: BP 135/72
[2019-03-14] MEDS: OLANZapine 10 MG TABLET PO SCH ×2 (08:34→17:09)
[2019-03-14] MEDS: DIVALPROEX SODIUM 250 MG ER TABLET PO SCH ×2 (08:35→17:09)
[2019-03-14 16:04] VITALS: BP 110/76
[2019-03-14] MEDS: LORazepam 2 MG TABLET PO PRN (17:09)
[2019-03-15 06:43] VITALS: BP 106/61
[2019-03-15 08:14] VITALS: BP 120/66
[2019-03-15] MEDS: DIVALPROEX SODIUM 250 MG ER TABLET PO SCH ×2 (09:12→16:55)
[2019-03-15] MEDS: OLANZapine 10 MG TABLET PO SCH ×2 (09:12→16:55)
[2019-03-15] MEDS: LORazepam 2 MG TABLET PO PRN (16:55)
[2019-03-15 17:56] VITALS: BP 112/60
[2019-03-16 07:04] VITALS: BP 119/79
[2019-03-16 07:54] LABS: EOSINOPHILS % (AUTO) 3.9 % (1.0-6.0); HEMATOCRIT 42.4 % (41-53); HEMOGLOBIN 14.4 g/dL (13.5-17.5); LYMPHOCYTES # (AUTO) 1.5 K/uL (1.0-4.8); LYMPHOCYTES % (AUTO) 36.5 % (22.0-44.0); MEAN CORPUSCULAR HGB CONC 34.1 G/dL (31.0-37.0); MEAN CORPUSCULAR VOLUME 91 fL (80-100); MONOCYTES # (AUTO) 0.5 K/uL (0.1-1.0); MONOCYTES % (AUTO) 12.6 % (2.0-9.0); NEUTROPHILS # (AUTO) 1.8 K/uL (1.8-7.7); PLATELET COUNT (AUTO) 195 K/uL (150-450); RED BLOOD CELL COUNT(AUTO) 4.66 MIL/uL (4.50-5.90); RED CELL DISTRIBUTION WIDTH 13.4 % (11.5-14.5)
[2019-03-16 08:18] VITALS: BP 111/65
[2019-03-16] MEDS: OLANZapine 10 MG TABLET PO SCH ×2 (08:27→16:54)
[2019-03-16] MEDS: DIVALPROEX SODIUM 250 MG ER TABLET PO SCH ×2 (08:27→16:54)
[2019-03-16 08:32] LABS: ALANINE AMINOTRANSFERASE 10 U/L (12-78); ALBUMIN 3.5 g/dL (3.4-5.0); ALKALINE PHOSPHATASE 72 U/L (46-116); ANION GAP 7 mmol/L (8-16); ASPARTATE AMINOTRANSFERASE 10 U/L (15-37); BILIRUBIN,TOTAL 0.4 mg/dL (0.1-1.0); CALCIUM, TOTAL 8.8 mg/dL (8.8-10.5); CARBON DIOXIDE 29 mmol/L (22-29); CHLORIDE 107 mmol/L (98-107); CREATININE 0.81 mg/dL (0.60-1.30); GLOMERULAR FILTR. RATE CALC > 60 mL/min (>60); GLUCOSE,RANDOM 80 mg/dL (70-110); POTASSIUM 4.6 mmol/L (3.5-5.1); SODIUM SERUM 143 mmol/L (136-145); TOTAL PROTEIN, SERUM 6.8 g/dL (6.4-8.2); UREA NITROGEN, BLOOD 15 mg/dL (7-18)
[2019-03-16] MEDS ORDERED: OLAN10TA22 PO (08:34)
[2019-03-16] MEDS ORDERED: DIVA250T45 PO (08:34)
[2019-03-16 16:20] VITALS: BP 116/64
== END 2019-03-16 21:07 | disposition home or self-care (01) | DRG 750 ==
LOC: EMS 10:23 → B3A 13:41
PROVIDERS: ADMIT Psychiatry & Neurology Psychiatry; ATTEND Psychiatry & Neurology Psychiatry
DX: F20.0 Paranoid schizophrenia (principal); Z91.19 Patient's noncompliance with other medical treatment and regimen; F12.90 Cannabis use, unspecified, uncomplicated; F17.210 Nicotine dependence, cigarettes, uncomplicated; J45.909 Unspecified asthma, uncomplicated; F41.9 Anxiety disorder, unspecified; F19.10 Other psychoactive substance abuse, uncomplicated; F32.9 Major depressive disorder, single episode, unspecified; R45.87 Impulsiveness; Z79.899 Other long term (current) drug therapy
CPT/HCPCS: 84439; 84443; G0480

== ENCOUNTER 2019-08-05 00:05 | Inpatient (IN) | payer MEDICAID, OTHER ==
[~2019-08-05] VITALS: Ht 162.6 cm; Wt 60.7 kg
[~2019-08-05 00:05] MED LIST changes: +DIVA250T45 PO; -DIVA500T52 PO; +OLAN10TA22 PO; -OLAN10TA3 PO
[2019-08-05 02:58] LABS: BASOPHILS % (AUTO) 0.4 % (0.0-2.0); HEMATOCRIT 37.9 % (41-53); HEMOGLOBIN 13.1 g/dL (13.5-17.5); LYMPHOCYTES # (AUTO) 2.2 K/uL (1.0-4.8); LYMPHOCYTES % (AUTO) 35.4 % (22.0-44.0); MEAN CORPUSCULAR HEMOGLOBIN 30.9 pg (26.0-34.0); MEAN CORPUSCULAR HGB CONC 34.7 G/dL (31.0-37.0); MEAN CORPUSCULAR VOLUME 89 fL (80-100); MONOCYTES # (AUTO) 0.5 K/uL (0.1-1.0); MONOCYTES % (AUTO) 8.2 % (2.0-9.0); NEUTROPHILS # (AUTO) 3.2 K/uL (1.8-7.7); PLATELET COUNT (AUTO) 194 K/uL (150-450); RED BLOOD CELL COUNT(AUTO) 4.25 MIL/uL (4.50-5.90); RED CELL DISTRIBUTION WIDTH 13.4 % (11.5-14.5)
[2019-08-05 03:18] LABS: ANION GAP 4 mmol/L (8-16); CALCIUM, TOTAL 8.8 mg/dL (8.8-10.5); CARBON DIOXIDE 31 mmol/L (22-29); CHLORIDE 106 mmol/L (98-107); CREATININE 0.86 mg/dL (0.60-1.30); GLOMERULAR FILTR. RATE CALC > 60 mL/min (>60); GLUCOSE,RANDOM 100 mg/dL (70-110); POTASSIUM 3.8 mmol/L (3.5-5.1); SODIUM SERUM 141 mmol/L (136-145); UREA NITROGEN, BLOOD 12 mg/dL (7-18)
[2019-08-05 03:23] LABS: ALANINE AMINOTRANSFERASE 17 U/L (12-78); ALBUMIN 3.8 g/dL (3.4-5.0); ALKALINE PHOSPHATASE 64 U/L (46-116); ASPARTATE AMINOTRANSFERASE 12 U/L (15-37); BILIRUBIN,TOTAL 0.2 mg/dL (0.1-1.0)
[2019-08-05 03:39] LABS: VALPROIC ACID < 3 mcg/mL (50-100)
[2019-08-05] MEDS ORDERED: HALOPERIDOL 5 MG TABLET PO PRN (04:15)
[2019-08-05] MEDS ORDERED: LORazepam 2 MG TABLET PO PRN (04:15)
[2019-08-05] MEDS ORDERED: ZOLPIDEM TARTRATE 10 MG TABLET PO PRN (04:15)
[2019-08-05] MEDS ORDERED: DOCUSATE SODIUM 100 MG CAPSULE PO PRN (08:30)
[2019-08-05] MEDS ORDERED: ONDANSETRON HCL 4 MG TABLET PO PRN ×2 (08:30→13:15)
[2019-08-05] MEDS ORDERED: CloNIDine HCL 0.1 MG TABLET PO PRN (08:30)
[2019-08-05] MEDS ORDERED: ACETAMINOPHEN 325 MG TABLET PO PRN (08:30)
[2019-08-05] MEDS ORDERED: MAG HYDROX/AL HYDROX/SIMETH ES 30 ML SUSPENSION UDCUP PO PRN (08:30)
[2019-08-05] MEDS ORDERED: GuaiFENesin/D-METHORPHAN [SUGAR-FREE] 200-20MG/10 ML SYRUP UDCUP PO PRN (08:30)
[2019-08-05] MEDS ORDERED: ALBUTEROL SULFATE HFA 90 MCG/PUFF 8 GM INHALER IH PRN (08:30)
[2019-08-05] MEDS ORDERED: IBUPROFEN 400 MG TABLET PO PRN (08:30)
[2019-08-05] MEDS ORDERED: PETROLATUM,WHITE 28 GM JELLY TP PRN (08:30)
[2019-08-05] MEDS ORDERED: NICOTINE 14 MG/24 HOUR PATCH TD PRN (08:30)
[2019-08-05] MEDS ORDERED: MAGNESIUM HYDROXIDE SUSPENSION 30 ML UDCUP PO PRN (08:30)
[2019-08-05] MEDS ORDERED: LOPERAMIDE HCL 2 MG CAPSULE PO PRN (08:30)
[2019-08-05 09:02] VITALS: BP 104/54
[2019-08-05 16:18] VITALS: BP 121/69
[2019-08-06 05:41] VITALS: BP 101/60
[2019-08-06 07:43] LABS: BASOPHILS % (AUTO) 0.6 % (0.0-2.0); EOSINOPHILS % (AUTO) 4.3 % (1.0-6.0); HEMATOCRIT 39.1 % (41-53); HEMOGLOBIN 13.5 g/dL (13.5-17.5); LYMPHOCYTES % (AUTO) 41.2 % (22.0-44.0); MEAN CORPUSCULAR HEMOGLOBIN 30.7 pg (26.0-34.0); MEAN CORPUSCULAR HGB CONC 34.5 G/dL (31.0-37.0); MEAN CORPUSCULAR VOLUME 89 fL (80-100); MONOCYTES # (AUTO) 0.3 K/uL (0.1-1.0); NEUTROPHILS # (AUTO) 2.3 K/uL (1.8-7.7); NEUTROPHILS % (AUTO) 46.9 % (40.0-70.0); PLATELET COUNT (AUTO) 196 K/uL (150-450); RED BLOOD CELL COUNT(AUTO) 4.39 MIL/uL (4.50-5.90); RED CELL DISTRIBUTION WIDTH 13.8 % (11.5-14.5)
[2019-08-06 08:08] LABS: ALANINE AMINOTRANSFERASE 17 U/L (12-78); ALBUMIN 3.7 g/dL (3.4-5.0); ALKALINE PHOSPHATASE 62 U/L (46-116); ANION GAP 8 mmol/L (8-16); ASPARTATE AMINOTRANSFERASE 12 U/L (15-37); BILIRUBIN,TOTAL 0.5 mg/dL (0.1-1.0); CALCIUM, TOTAL 8.5 mg/dL (8.8-10.5); CARBON DIOXIDE 26 mmol/L (22-29); CHLORIDE 105 mmol/L (98-107); CHOL/HDL RATIO 4.4 (4.2-7.3); CHOLESTEROL 131 mg/dL (131-200); CREATININE 0.76 mg/dL (0.60-1.30); GLOMERULAR FILTR. RATE CALC > 60 mL/min (>60); GLUCOSE,RANDOM 85 mg/dL (70-110); HDL CHOLESTEROL 30 mg/dL (40-60); LDL CHOL (CALC.) 84 mg/dL (0-130); POTASSIUM 3.9 mmol/L (3.5-5.1); SODIUM SERUM 139 mmol/L (136-145); THYROID STIMULATING HORMONE 0.54 uIU/mL (0.36-3.74); TOTAL PROTEIN, SERUM 6.9 g/dL (6.4-8.2); TRIGLYCERIDES 86 mg/dL (15-150); UREA NITROGEN, BLOOD 12 mg/dL (7-18)
[2019-08-06 08:37] VITALS: BP 90/50
[2019-08-06 08:45] LABS: HEMOGLOBIN A1C 5.7 % (3.8-5.6)
[2019-08-06] MEDS ORDERED: OLANZapine 10 MG TABLET PO ONE (12:30)
[2019-08-06] MEDS: NICOTINE 14 MG/24 HOUR PATCH TD SCH (13:18)
[2019-08-06 16:19] VITALS: BP 119/75
[2019-08-06] MEDS: OLANZapine 10 MG TABLET PO SCH (16:37)
[2019-08-06] MEDS: DIVALPROEX SODIUM 250 MG DR TABLET PO SCH (16:37)
[2019-08-07 04:12] VITALS: BP 111/77
[2019-08-07] MEDS: OLANZapine 10 MG TABLET PO SCH ×2 (08:46→16:32)
[2019-08-07] MEDS: DIVALPROEX SODIUM 250 MG DR TABLET PO SCH ×2 (08:46→16:32)
[2019-08-07] MEDS: NICOTINE 14 MG/24 HOUR PATCH TD SCH (08:47)
[2019-08-07 08:49] LABS: APPEARANCE,URINE CLEAR (CLEAR); BILIRUBIN,URINE NEGATIVE (NEGATIVE); GLUCOSE, URINE (UA) NEGATIVE (NEGATIVE); KETONES,URINE NEGATIVE (NEGATIVE); LEUKOCYTE ESTERASE ,URINE NEGATIVE (NEGATIVE); NITRATE,URINE NEGATIVE (NEGATIVE); OCCULT BLOOD,URINE NEGATIVE (NEGATIVE); PROTEIN,URINE NEGATIVE (NEGATIVE); UROBILINOGEN,URINE 0.2 mg/dL (<=1.0)
[2019-08-07 09:01] VITALS: BP 93/51
[2019-08-07 09:04] LABS: AMPHET/METH SCREEN,URINE NEGATIVE (NEGATIVE); BARBITURATE SCREEN, URINE NEGATIVE (NEGATIVE); BENZODIAZEPINES SCREEN,URINE NEGATIVE (NEGATIVE); CANNABINOID SCREEN,URINE NEGATIVE (NEGATIVE); COCAINE SCREEN,URINE NEGATIVE (NEGATIVE); METHADONE SCREEN, URINE NEGATIVE (NEGATIVE); OPIATE SCREEN,URINE NEGATIVE (NEGATIVE)
[2019-08-07 09:05] LABS: PHENCYCLIDINE SCREEN,URINE NEGATIVE (NEGATIVE)
[2019-08-07] MEDS ORDERED: OLAN10TA3 PO (16:31)
[2019-08-07] MEDS ORDERED: DIVA-76 PO (16:31)
[2019-08-07 16:59] VITALS: BP 106/60
[2019-08-07] MEDS ORDERED: DIVALPROEX SODIUM 250 MG DR TABLET PO SCH (17:00)
== END 2019-08-07 18:15 | disposition home or self-care (01) | DRG 750 ==
LOC: EMS 00:05 → B3A 08:36
PROVIDERS: ADMIT Psychiatry & Neurology Psychiatry; ATTEND Psychiatry & Neurology Psychiatry
DX: F20.0 Paranoid schizophrenia (principal); R45.851 Suicidal ideations; D64.9 Anemia, unspecified; F19.10 Other psychoactive substance abuse, uncomplicated; J45.909 Unspecified asthma, uncomplicated; F17.210 Nicotine dependence, cigarettes, uncomplicated; F12.90 Cannabis use, unspecified, uncomplicated; F32.9 Major depressive disorder, single episode, unspecified
CPT/HCPCS: 80307; 83036; 84443; G0480

== ENCOUNTER 2019-12-02 22:04 | Inpatient (IN) | payer MEDICAID, OTHER ==
[~2019-12-02] VITALS: Ht 170.2 cm; Wt 61.0 kg
[~2019-12-02 22:04] MED LIST changes: +DIVA-111 PO; -DIVA250T45 PO; -OLAN10TA22 PO; +OLAN10TA3 PO
[2019-12-03 00:12] LABS: BASOPHILS % (AUTO) 0.8 % (0.0-2.0); EOSINOPHILS % (AUTO) 4.1 % (1.0-6.0); HEMATOCRIT 36.7 % (41-53); HEMOGLOBIN 12.8 g/dL (13.5-17.5); LYMPHOCYTES # (AUTO) 2.3 K/uL (1.0-4.8); LYMPHOCYTES % (AUTO) 35.3 % (22.0-44.0); MEAN CORPUSCULAR HEMOGLOBIN 30.9 pg (26.0-34.0); MEAN CORPUSCULAR HGB CONC 34.7 G/dL (31.0-37.0); MEAN CORPUSCULAR VOLUME 89 fL (80-100); MONOCYTES # (AUTO) 0.6 K/uL (0.1-1.0); MONOCYTES % (AUTO) 8.7 % (2.0-9.0); NEUTROPHILS # (AUTO) 3.3 K/uL (1.8-7.7); NEUTROPHILS % (AUTO) 51.1 % (40.0-70.0); PLATELET COUNT (AUTO) 191 K/uL (150-450); RED BLOOD CELL COUNT(AUTO) 4.13 MIL/uL (4.50-5.90); RED CELL DISTRIBUTION WIDTH 13.2 % (11.5-14.5)
[2019-12-03 00:23] LABS: ANION GAP 4 mmol/L (8-16); CALCIUM, TOTAL 9.1 mg/dL (8.8-10.5); CARBON DIOXIDE 30 mmol/L (22-29); CHLORIDE 103 mmol/L (98-107); GLOMERULAR FILTR. RATE CALC > 60 mL/min (>60); GLUCOSE,RANDOM 106 mg/dL (70-110); POTASSIUM 4.2 mmol/L (3.5-5.1); SODIUM SERUM 137 mmol/L (136-145); UREA NITROGEN, BLOOD 9 mg/dL (7-18)
[2019-12-03 00:30] LABS: ALANINE AMINOTRANSFERASE 14 U/L (12-78); ALBUMIN 3.7 g/dL (3.4-5.0); ALKALINE PHOSPHATASE 73 U/L (46-116); ASPARTATE AMINOTRANSFERASE 11 U/L (15-37); BILIRUBIN,TOTAL 0.3 mg/dL (0.1-1.0); TOTAL PROTEIN, SERUM 6.3 g/dL (6.4-8.2)
[2019-12-03 01:08] LABS: COVID AG,FIA SOURCE NASOPHARYNGEAL
[2019-12-03] MEDS ORDERED: HALOPERIDOL 5 MG TABLET PO PRN (01:30)
[2019-12-03] MEDS ORDERED: ZOLPIDEM TARTRATE 10 MG TABLET PO PRN (01:30)
[2019-12-03] MEDS ORDERED: LORazepam 2 MG TABLET PO PRN (01:30)
[2019-12-03 09:41] LABS: APPEARANCE,URINE CLOUDY (CLEAR); BILIRUBIN,URINE NEGATIVE (NEGATIVE); GLUCOSE, URINE (UA) NEGATIVE (NEGATIVE); KETONES,URINE NEGATIVE (NEGATIVE); LEUKOCYTE ESTERASE ,URINE NEGATIVE (NEGATIVE); NITRATE,URINE NEGATIVE (NEGATIVE); OCCULT BLOOD,URINE NEGATIVE (NEGATIVE); PH,URINE 7.5 (5.0-8.0); PROTEIN,URINE NEGATIVE (NEGATIVE); UROBILINOGEN,URINE 0.2 mg/dL (<=1.0)
[2019-12-03 09:47] LABS: AMPHET/METH SCREEN,URINE POSITIVE (NEGATIVE); BARBITURATE SCREEN, URINE NEGATIVE (NEGATIVE); BENZODIAZEPINES SCREEN,URINE NEGATIVE (NEGATIVE); CANNABINOID SCREEN,URINE NEGATIVE (NEGATIVE); COCAINE SCREEN,URINE NEGATIVE (NEGATIVE); METHADONE SCREEN, URINE NEGATIVE (NEGATIVE); OPIATE SCREEN,URINE NEGATIVE (NEGATIVE); PHENCYCLIDINE SCREEN,URINE NEGATIVE (NEGATIVE)
[2019-12-03 10:27] LABS: AMORPHOUS SEDIMENT,UR Moderate /LPF (None Seen); BACTERIA,URINE None Seen /HPF (None Seen); RBC,URINE None Seen /HPF (0-2); SQUAMOUS EPITHELIAL CELL,UR Few /LPF (None Seen); WBC,URINE None Seen /HPF (0-5)
[2019-12-03 15:39] VITALS: BP 110/72
[2019-12-03 16:58] VITALS: BP 104/60
[2019-12-03] MEDS: OLANZapine 10 MG TABLET PO SCH (20:12)
[2019-12-03] MEDS ORDERED: CloNIDine HCL 0.1 MG TABLET PO PRN (21:15)
[2019-12-03] MEDS ORDERED: ONDANSETRON HCL 4 MG TABLET PO PRN (21:15)
[2019-12-03] MEDS ORDERED: BACITRACIN 28 GM OINTMENT TP PRN (21:15)
[2019-12-03] MEDS ORDERED: PETROLATUM,WHITE 28 GM JELLY TP PRN (21:15)
[2019-12-03] MEDS ORDERED: LOPERAMIDE HCL 2 MG CAPSULE PO PRN (21:15)
[2019-12-03] MEDS ORDERED: MAGNESIUM HYDROXIDE SUSPENSION 30 ML UDCUP PO PRN (21:15)
[2019-12-03] MEDS ORDERED: DOCUSATE SODIUM 100 MG CAPSULE PO PRN (21:15)
[2019-12-03] MEDS ORDERED: ACETAMINOPHEN 325 MG TABLET PO PRN (21:15)
[2019-12-03] MEDS ORDERED: OMEPRAZOLE 20 MG CAPSULE PO PRN (21:15)
[2019-12-03] MEDS ORDERED: MAG HYDROX/AL HYDROX/SIMETH ES 30 ML SUSPENSION UDCUP PO PRN (21:15)
[2019-12-03] MEDS ORDERED: ALBUTEROL SULFATE HFA 90 MCG/PUFF 8 GM INHALER IH PRN (21:15)
[2019-12-03] MEDS ORDERED: BENZOCAINE/MENTHOL LOZENGE PO PRN (21:15)
[2019-12-04 01:13] VITALS: BP 107/61
[2019-12-04 08:40] LABS: CHOL/HDL RATIO 4.3 (4.2-7.3)
[2019-12-04] MEDS: DIVALPROEX SODIUM 250 MG DR TABLET PO SCH ×2 (09:27→16:54)
[2019-12-04 16:35] VITALS: BP 121/68
[2019-12-04] MEDS: OLANZapine 10 MG TABLET PO SCH (20:22)
[2019-12-05 06:14] VITALS: BP 104/59
[2019-12-05 08:16] VITALS: BP 106/63
[2019-12-05] MEDS: DIVALPROEX SODIUM 250 MG DR TABLET PO SCH ×2 (09:00→16:11)
[2019-12-05 16:33] VITALS: BP 107/62
[2019-12-05] MEDS: OLANZapine 10 MG TABLET PO SCH (20:42)
[2019-12-06 00:40] VITALS: BP 111/64
[2019-12-06 08:15] VITALS: BP 110/67
[2019-12-06] MEDS: DIVALPROEX SODIUM 250 MG DR TABLET PO SCH ×2 (09:46→17:38)
[2019-12-06 17:15] VITALS: BP 109/62
[2019-12-06] MEDS: IBUPROFEN 600 MG TABLET PO PRN (19:37)
[2019-12-06] MEDS: OLANZapine 10 MG TABLET PO SCH (21:30)
[2019-12-07 00:50] VITALS: BP 102/61
[2019-12-07] MEDS: DIVALPROEX SODIUM 250 MG DR TABLET PO SCH ×2 (08:44→16:40)
[2019-12-07 08:50] VITALS: BP 102/60
[2019-12-07 16:13] VITALS: BP 103/66
[2019-12-07] MEDS: IBUPROFEN 600 MG TABLET PO PRN (18:39)
[2019-12-07] MEDS: OLANZapine 10 MG TABLET PO SCH (20:16)
[2019-12-08 00:42] VITALS: BP 106/67
[2019-12-08] MEDS: DIVALPROEX SODIUM 250 MG DR TABLET PO SCH (08:26)
[2019-12-08 10:00] VITALS: BP 118/70
[2019-12-08] MEDS ORDERED: OLAN10TA3 PO (11:43)
== END 2019-12-08 13:30 | disposition home or self-care (01) | DRG 750 ==
LOC: EMS 22:04 → B2S 12-03 13:11
PROVIDERS: ADMIT Psychiatry & Neurology Psychiatry; ATTEND Psychiatry & Neurology Psychiatry
DX: F20.0 Paranoid schizophrenia (principal); J45.909 Unspecified asthma, uncomplicated; R45.851 Suicidal ideations; F15.90 Other stimulant use, unspecified, uncomplicated; F10.10 Alcohol abuse, uncomplicated; F12.90 Cannabis use, unspecified, uncomplicated; F41.9 Anxiety disorder, unspecified; Z20.828 Contact with and (suspected) exposure to other viral communicable diseases; Z87.891 Personal history of nicotine dependence
CPT/HCPCS: 87426; G0480

== ENCOUNTER 2020-04-30 00:25 | Emergency (ER) | payer MEDICAID, OTHER ==
[~2020-04-30] VITALS: Ht 170.2 cm; Wt 61.0 kg
[2020-04-30 01:11] LABS: BASOPHILS % (AUTO) 0.8 % (0.0-2.0); HEMATOCRIT 39.2 % (41-53); HEMOGLOBIN 13.3 g/dL (13.5-17.5); LYMPHOCYTES # (AUTO) 2.1 K/uL (1.0-4.8); MEAN CORPUSCULAR HEMOGLOBIN 30.1 pg (26.0-34.0); MEAN CORPUSCULAR HGB CONC 33.8 G/dL (31.0-37.0); MEAN CORPUSCULAR VOLUME 89 fL (80-100); MONOCYTES # (AUTO) 0.5 K/uL (0.1-1.0); MONOCYTES % (AUTO) 11.3 % (2.0-9.0); NEUTROPHILS # (AUTO) 1.9 K/uL (1.8-7.7); NEUTROPHILS % (AUTO) 38.9 % (40.0-70.0); PLATELET COUNT (AUTO) 187 K/uL (150-450); RED BLOOD CELL COUNT(AUTO) 4.41 MIL/uL (4.50-5.90)
[2020-04-30 01:30] LABS: GLUCOSE,RANDOM 92 mg/dL (70-110); UREA NITROGEN, BLOOD 8 mg/dL (7-18)
[2020-04-30 01:31] LABS: ALANINE AMINOTRANSFERASE 15 U/L (12-78); ALBUMIN 3.7 g/dL (3.4-5.0); ALKALINE PHOSPHATASE 72 U/L (46-116); ASPARTATE AMINOTRANSFERASE 13 U/L (15-37); BILIRUBIN,TOTAL 0.3 mg/dL (0.1-1.0); CALCIUM, TOTAL 8.9 mg/dL (8.8-10.5); GLOMERULAR FILTR. RATE CALC > 60 mL/min (>60); LIPASE 73 U/L (73-393); TOTAL PROTEIN, SERUM 6.5 g/dL (6.4-8.2); VALPROIC ACID < 3 mcg/mL (50-100)
[2020-04-30 01:36] LABS: ANION GAP 9 mmol/L (8-16); CARBON DIOXIDE 28 mmol/L (22-29); CHLORIDE 105 mmol/L (98-107); POTASSIUM 3.8 mmol/L (3.5-5.1); SODIUM SERUM 142 mmol/L (136-145)
[2020-04-30 02:12] LABS: COVID AG,FIA SOURCE NASAL SWAB
[2020-04-30 06:30] VITALS: BP 119/69
== END 2020-04-30 07:00 | disposition home or self-care (01) ==
LOC: EMS 00:26
DX: F20.9 Schizophrenia, unspecified (principal); J45.909 Unspecified asthma, uncomplicated; F32.9 Major depressive disorder, single episode, unspecified; F17.210 Nicotine dependence, cigarettes, uncomplicated; F12.90 Cannabis use, unspecified, uncomplicated; Z20.822 Contact with and (suspected) exposure to COVID-19
CPT/HCPCS: 36415; 80053; 80164; 83690; 85025; 87426; 99283; 99406; G0480

== ENCOUNTER 2020-06-14 14:05 | Emergency (ER) | payer OTHER ==
[~2020-06-14] VITALS: Ht 175.3 cm; Wt 68.2 kg
[2020-06-14] MEDS ORDERED: NALOXONE HCL 1 MG/ML 2 ML SYG IVP ONE (14:45)
[2020-06-14 15:15] LABS: BASOPHILS % (AUTO) 0.6 % (0.0-2.0); HEMATOCRIT 38.1 % (41-53); LYMPHOCYTES # (AUTO) 2.3 K/uL (1.0-4.8); LYMPHOCYTES % (AUTO) 34.6 % (22.0-44.0); MEAN CORPUSCULAR HEMOGLOBIN 30.6 pg (26.0-34.0); MEAN CORPUSCULAR HGB CONC 34.1 G/dL (31.0-37.0); MEAN CORPUSCULAR VOLUME 90 fL (80-100); MONOCYTES # (AUTO) 0.7 K/uL (0.1-1.0); MONOCYTES % (AUTO) 10.9 % (2.0-9.0); NEUTROPHILS # (AUTO) 3.5 K/uL (1.8-7.7); NEUTROPHILS % (AUTO) 51.9 % (40.0-70.0); PLATELET COUNT (AUTO) 205 K/uL (150-450); RED BLOOD CELL COUNT(AUTO) 4.24 MIL/uL (4.50-5.90); RED CELL DISTRIBUTION WIDTH 14.1 % (11.5-14.5)
[2020-06-14 15:24] LABS: AMPHET/METH SCREEN,URINE POSITIVE (NEGATIVE); BARBITURATE SCREEN, URINE NEGATIVE (NEGATIVE); BENZODIAZEPINES SCREEN,URINE NEGATIVE (NEGATIVE); CANNABINOID SCREEN,URINE NEGATIVE (NEGATIVE); COCAINE SCREEN,URINE NEGATIVE (NEGATIVE); METHADONE SCREEN, URINE NEGATIVE (NEGATIVE); OPIATE SCREEN,URINE NEGATIVE (NEGATIVE)
[2020-06-14 15:27] LABS: PHENCYCLIDINE SCREEN,URINE NEGATIVE (NEGATIVE)
[2020-06-14 15:52] LABS: ANION GAP 9 mmol/L (8-16); CALCIUM, TOTAL 8.7 mg/dL (8.8-10.5); CARBON DIOXIDE 26 mmol/L (22-29); CHLORIDE 104 mmol/L (98-107); CREATININE 0.99 mg/dL (0.60-1.30); GLOMERULAR FILTR. RATE CALC > 60 mL/min (>60); GLUCOSE,RANDOM 115 mg/dL (70-110); POTASSIUM 3.6 mmol/L (3.5-5.1); SODIUM SERUM 139 mmol/L (136-145); UREA NITROGEN, BLOOD 7 mg/dL (7-18)
[2020-06-14 15:58] LABS: ALANINE AMINOTRANSFERASE 18 U/L (12-78); ALBUMIN 3.8 g/dL (3.4-5.0); ALKALINE PHOSPHATASE 66 U/L (46-116); ASPARTATE AMINOTRANSFERASE 9 U/L (15-37); BILIRUBIN,TOTAL 0.4 mg/dL (0.1-1.0); TOTAL PROTEIN, SERUM 6.4 g/dL (6.4-8.2)
[2020-06-14 16:02] LABS: ACETAMINOPHEN < 2 mcg/mL (10-30)
[2020-06-14 16:03] LABS: SALICYLATE < 2.8 mg/dL (2.8-20.0); VALPROIC ACID < 3 mcg/mL (50-100)
[2020-06-14] MEDS ORDERED: SODIUM CHLORIDE 0.9% 1,000 ML IV ONE (16:15)
[2020-06-14 18:29] LABS: COVID AG,FIA SOURCE NASOPHARYNGEAL
[2020-06-14 18:49] LABS: LACTIC ACID 1.1 mmol/L (0.4-2.0)
[2020-06-14 20:25] LABS: GLUCOSE,POINT OF CARE 85 MG/DL (70-110)
[2020-06-14 21:50] VITALS: BP 105/74
== END 2020-06-14 22:40 | disposition admitted as inpatient to this hospital (09) ==
LOC: EMS 14:05
DX: G93.40 Encephalopathy, unspecified (principal); F25.9 Schizoaffective disorder, unspecified; F17.210 Nicotine dependence, cigarettes, uncomplicated; F12.90 Cannabis use, unspecified, uncomplicated; Z20.822 Contact with and (suspected) exposure to COVID-19
CPT/HCPCS: 36415; 70450; 72125; 80053; 80164; 80307; 82550; 82962; 83605; 84484; 85025; 87426; 93005; 96361; 96374; 99285; G0480; J2310; 51701; G0481

== ENCOUNTER 2020-12-14 13:34 | Inpatient (IN) | payer MEDICAID, OTHER ==
[~2020-12-14] VITALS: Ht 162.6 cm; Wt 54.0 kg
[~2020-12-14 13:34] MED LIST changes: -OLAN10TA3 PO; +OLAN10TA74 PO
[2020-12-14 14:47] LABS: BASOPHILS % (AUTO) 0.7 % (0.0-2.0); EOSINOPHILS % (AUTO) 3.6 % (1.0-6.0); HEMATOCRIT 45.3 % (41-53); HEMOGLOBIN 15.2 g/dL (13.5-17.5); LYMPHOCYTES # (AUTO) 2.1 K/uL (1.0-4.8); LYMPHOCYTES % (AUTO) 34.3 % (22.0-44.0); MEAN CORPUSCULAR HEMOGLOBIN 29.8 pg (26.0-34.0); MEAN CORPUSCULAR HGB CONC 33.6 G/dL (31.0-37.0); MEAN CORPUSCULAR VOLUME 89 fL (80-100); MONOCYTES # (AUTO) 0.6 K/uL (0.1-1.0); MONOCYTES % (AUTO) 9.6 % (2.0-9.0); NEUTROPHILS # (AUTO) 3.1 K/uL (1.8-7.7); NEUTROPHILS % (AUTO) 51.8 % (40.0-70.0); PLATELET COUNT (AUTO) 251 K/uL (150-450); RED BLOOD CELL COUNT(AUTO) 5.11 MIL/uL (4.50-5.90); RED CELL DISTRIBUTION WIDTH 13.9 % (11.5-14.5)
[2020-12-14 14:56] LABS: ANION GAP 5 mmol/L (8-16); CARBON DIOXIDE 31 mmol/L (22-29); CHLORIDE 101 mmol/L (98-107); CREATININE 0.86 mg/dL (0.60-1.30); GLOMERULAR FILTR. RATE CALC > 60 mL/min (>60); GLUCOSE,RANDOM 80 mg/dL (70-110); POTASSIUM 3.9 mmol/L (3.5-5.1); SODIUM SERUM 137 mmol/L (136-145); UREA NITROGEN, BLOOD 7 mg/dL (7-18)
[2020-12-14 15:02] LABS: ALANINE AMINOTRANSFERASE 22 U/L (12-78); ALBUMIN 4.7 g/dL (3.4-5.0); ALKALINE PHOSPHATASE 92 U/L (46-116); ASPARTATE AMINOTRANSFERASE 22 U/L (15-37); BILIRUBIN,TOTAL 0.5 mg/dL (0.1-1.0); TOTAL PROTEIN, SERUM 7.9 g/dL (6.4-8.2)
[2020-12-14 15:03] LABS: VALPROIC ACID < 3 mcg/mL (50-100)
[2020-12-14 15:05] LABS: COVID AG,FIA SOURCE NASOPHARYNGEAL
[2020-12-14] MEDS ORDERED: HALOPERIDOL 5 MG TABLET PO PRN (17:00)
[2020-12-14] MEDS ORDERED: LORazepam 2 MG TABLET PO PRN (17:00)
[2020-12-14] MEDS ORDERED: ZOLPIDEM TARTRATE 10 MG TABLET PO PRN (17:00)
[2020-12-15 03:47] VITALS: BP 102/63
[2020-12-15] MEDS ORDERED: INFLUENZA VIRUS VACCINE QVS 2021-22 (6MO+)/PF 60 MCG/0.5 ML SYRINGE IM. ONE (04:45)
[2020-12-15] MEDS ORDERED: PNEUMOCOCCAL VACCINE POLYVALENT 0.5 ML VIAL [PPSV23] IM. ONE (04:45)
[2020-12-15] MEDS ORDERED: ACETAMINOPHEN 325 MG TABLET PO PRN (14:00)
[2020-12-15] MEDS ORDERED: ONDANSETRON HCL 4 MG TABLET PO PRN (14:00)
[2020-12-15] MEDS ORDERED: PETROLATUM,WHITE 28 GM JELLY TP PRN (14:00)
[2020-12-15] MEDS ORDERED: NICOTINE 14 MG/24 HOUR PATCH TD PRN (14:00)
[2020-12-15] MEDS ORDERED: LOPERAMIDE HCL 2 MG CAPSULE PO PRN (14:00)
[2020-12-15] MEDS ORDERED: IBUPROFEN 400 MG TABLET PO PRN (14:00)
[2020-12-15] MEDS ORDERED: CloNIDine HCL 0.1 MG TABLET PO PRN (14:00)
[2020-12-15] MEDS ORDERED: GuaiFENesin/D-METHORPHAN [SUGAR-FREE] 200-20MG/10 ML SYRUP UDCUP PO PRN (14:00)
[2020-12-15] MEDS ORDERED: MAG HYDROX/AL HYDROX/SIMETH ES 30 ML SUSPENSION UDCUP PO PRN (14:00)
[2020-12-15] MEDS ORDERED: MAGNESIUM HYDROXIDE SUSPENSION 30 ML UDCUP PO PRN (14:00)
[2020-12-15] MEDS ORDERED: DOCUSATE SODIUM 100 MG CAPSULE PO PRN (14:00)
[2020-12-15] MEDS ORDERED: ALBUTEROL SULFATE HFA 90 MCG/PUFF 8 GM INHALER IH PRN (14:00)
[2020-12-15 16:13] VITALS: BP 103/65
[2020-12-15] MEDS: OLANZapine 10 MG TABLET PO SCH (21:25)
[2020-12-16 00:13] VITALS: BP 109/74
[2020-12-16 07:27] LABS: HEMOGLOBIN A1C 5.6 % (3.8-5.6)
[2020-12-16 07:41] LABS: CHOL/HDL RATIO 3.5 (4.2-7.3); FREE T4 (FREE THYROXINE) 1.02 ng/dL (0.76-1.46); THYROID STIMULATING HORMONE 0.27 uIU/mL (0.36-3.74)
[2020-12-16 08:31] VITALS: BP 95/61
[2020-12-16] MEDS: DIVALPROEX SODIUM 250 MG DR TABLET PO SCH ×2 (08:35→16:40)
[2020-12-16 16:22] VITALS: BP 103/61
[2020-12-16] MEDS: OLANZapine 10 MG TABLET PO SCH (20:46)
[2020-12-17 00:53] VITALS: BP 108/62
[2020-12-17 08:22] VITALS: BP 109/60
[2020-12-17] MEDS: DIVALPROEX SODIUM 250 MG DR TABLET PO SCH ×2 (08:47→16:19)
[2020-12-17 16:32] VITALS: BP 106/62
[2020-12-17] MEDS: OLANZapine 10 MG TABLET PO SCH (21:08)
[2020-12-18 00:42] VITALS: BP 106/61
[2020-12-18] MEDS: DIVALPROEX SODIUM 250 MG DR TABLET PO SCH ×2 (10:43→16:18)
[2020-12-18 16:29] VITALS: BP 114/65
[2020-12-18] MEDS: OLANZapine 10 MG TABLET PO SCH (20:22)
[2020-12-19 01:07] VITALS: BP 101/60
[2020-12-19 08:21] LABS: COVID AG,FIA SOURCE NASOPHARYNGEAL
[2020-12-19 08:28] VITALS: BP 100/60
[2020-12-19] MEDS: DIVALPROEX SODIUM 250 MG DR TABLET PO SCH ×2 (09:57→17:01)
[2020-12-19 16:27] VITALS: BP 109/79
[2020-12-19] MEDS: OLANZapine 10 MG TABLET PO SCH (20:34)
[2020-12-20 00:15] VITALS: BP 101/61
[2020-12-20 08:13] VITALS: BP 115/78
[2020-12-20] MEDS: DIVALPROEX SODIUM 250 MG DR TABLET PO SCH ×2 (08:38→17:00)
[2020-12-20 16:20] VITALS: BP 111/66
[2020-12-20] MEDS: OLANZapine 10 MG TABLET PO SCH (20:25)
[2020-12-21 00:25] VITALS: BP 105/62
[2020-12-21 08:19] VITALS: BP 100/62
[2020-12-21] MEDS: DIVALPROEX SODIUM 250 MG DR TABLET PO SCH ×2 (08:28→16:24)
[2020-12-21 16:38] VITALS: BP 111/65
[2020-12-21] MEDS: OLANZapine 10 MG TABLET PO SCH (20:17)
[2020-12-22 01:14] VITALS: BP 105/62
[2020-12-22 08:19] VITALS: BP 111/60
[2020-12-22] MEDS: DIVALPROEX SODIUM 250 MG DR TABLET PO SCH ×2 (09:13→16:39)
[2020-12-22 16:29] VITALS: BP 120/67
[2020-12-22] MEDS: OLANZapine 10 MG TABLET PO SCH (20:44)
[2020-12-23 00:36] VITALS: BP 125/83
[2020-12-23 08:29] VITALS: BP 113/70
[2020-12-23] MEDS: DIVALPROEX SODIUM 250 MG DR TABLET PO SCH (09:50)
== END 2020-12-23 15:45 | disposition home or self-care (01) | DRG 750 ==
LOC: EMS 13:34 → B2S 23:29
PROVIDERS: ADMIT Psychiatry & Neurology Child & Adolescent Psychiatry; ATTEND Psychiatry & Neurology Child & Adolescent Psychiatry
DX: F25.0 Schizoaffective disorder, bipolar type (principal); I95.9 Hypotension, unspecified; Z59.00 Homelessness unspecified; Z91.14 Patient's other noncompliance with medication regimen; F12.90 Cannabis use, unspecified, uncomplicated; F17.200 Nicotine dependence, unspecified, uncomplicated; J45.909 Unspecified asthma, uncomplicated; F32.A Depression, unspecified; F41.9 Anxiety disorder, unspecified; Z79.899 Other long term (current) drug therapy; Z91.19 Patient's noncompliance with other medical treatment and regimen; Z20.822 Contact with and (suspected) exposure to COVID-19
CPT/HCPCS: 80053; 80061; 80164; 83036; 84439; 84443; 85025; 90732; 99285; G0480

== ENCOUNTER 2021-02-05 01:28 | Emergency (ER) | payer MEDICAID, OTHER ==
[~2021-02-05] VITALS: Ht 162.6 cm; Wt 0.6 kg
[2021-02-05 01:35] VITALS: BP 124/57
== END 2021-02-05 02:19 | disposition left against medical advice (07) ==
LOC: EMS 01:29
DX: Z53.21 Procedure and treatment not carried out due to patient leaving prior to being seen by health care provider (principal)